=== PATIENT | female | born 1955 | race Caucasian/White ===

== ENCOUNTER 2017-10-14 10:23 | Emergency (ER) | payer BC | END 2017-10-14 12:21 | disposition left against medical advice (07) | LOC: UCCORT 10:23 | DX: J02.9 Acute pharyngitis, unspecified (principal); R49.1 Aphonia; Z53.21 Procedure and treatment not carried out due to patient leaving prior to being seen by health care provider ==

== ENCOUNTER 2017-10-14 12:35 | Emergency (ER) | payer BC, OTHER ==
[2017-10-14 13:19] VITALS: BP 118/69
--- NOTE | 2017-10-14 14:45 | UC ---
Throat Pain/Nasal El HPI - HPI Summary HPI Summary: 62 year old female presents with complains of sore throat and cough. - History of Current Complaint Chief Complaint: UCGeneralIllness Stated Complaint: ST,COUGH Time Seen by Provider: 10/14/17 14:45 Hx Obtained From: Patient Onset/Duration: Sudden Onset Severity: Moderate Cough: Nonproductive Associated Signs & Symptoms: Positive: Dysphagia, Wheezing - Allergies/Home Medications Allergies/Adverse Reactions: Allergies Allergy/AdvReac Type Severity Reaction Status Date / Time No Known Allergies Allergy Verified 10/14/17 13:21 Home Medications: Home Medications Anastrozole [Arimidex] 1 mg PO DAILY 10/14/17 [History Confirmed 10/14/17] Valsartan-Hydrochlorothiazide [Valsartan/Hydrochlorothia] 1 tab PO DAILY [History Confirmed 10/14/17] amLODIPine TAB* [Norvasc 5 mg TAB*] 5 mg PO DAILY 10/14/17 [History Confirmed ] PMH/Surg Hx/FS Hx/Imm Hx Previously Healthy: Yes - Surgical History Surgical History: Yes Surgery Procedure, Year, and Place: 4 C SECTIONS. Lumpectomy left breast - Social History Alcohol Use: Weekly Substance Use Type: None Smoking Status (MU): Never Smoked Tobacco Review of Systems Constitutional: Negative Skin: Negative Eyes: Negative ENT: Sore Throat, Nasal Discharge, Sinus Congestion, Sinus Pain/Tenderness Respiratory: Cough Cardiovascular: Negative Gastrointestinal: Negative Genitourinary: Negative Motor: Negative Neurovascular: Negative Musculoskeletal: Negative Neurological: Negative Psychological: Negative All Other Systems Reviewed And Are Negative: Yes Physical Exam Triage Information Reviewed: Yes Vital Signs: Initial Vital Signs Temp 36.6 C 10/14/17 13:16 Pulse 65 10/14/17 13:16 Resp 14 10/14/17 13:16 BP 118/69 10/14/17 13:16 Pulse Ox 97 10/14/17 13:16 Vital Signs Reviewed: Yes Eye Exam: Normal ENT: Positive: Nasal congestion, Nasal drainage, Tonsillar swelling, Sinus tenderness Dental Exam: Normal Neck exam: Normal Neck: Positive: 1 Respiratory: Positive: Expiration Cardiovascular Exam: Normal Abdominal Exam: Normal Musculoskeletal Exam: Normal Neurological Exam: Normal Psychological Exam: Normal Skin Exam: Normal Throat Pain/Nasal Course/Dx - Differential Dx/Diagnosis Provider Diagnoses: pharyngitis. strep throat Discharge - Discharge Plan Condition: Stable Disposition: HOME Prescriptions: Amoxicillin PO (*) [Amoxicillin 875 MG (*)] 875 mg PO BID #20 tab Guaifenesin-Codeine [Cheratussin AC] 1 teasp PO Q8H PRN #120 ml MDD 15 ml PRN Reason: Cough LoraTADine TAB(NF) [Claritin 10 MG TAB(NF)] 10 mg PO DAILY #30 tab Magic M W2 Watson/Maal/Nyst/Lido* 5 ml SWISH SPIT QID PRN #120 ml PRN Reason: Pain Patient Education Materials: Pharyngitis (ED), Acute Cough (ED) Referrals: Halley Mckeon MD [Primary Care Provider] -
== END 2017-10-14 15:03 | disposition home or self-care (01) ==
LOC: UCCORT 12:35
DX: J02.0 Streptococcal pharyngitis (principal)
CPT/HCPCS: 87651; 99201; G0463